=== PATIENT | female | born 1975 ===

== ENCOUNTER 2018-08-11 01:08 | Emergency (ER) | payer SELFPAY ==
[2018-08-11 01:08] VITALS: BMI 39.0
[2018-08-11 01:31] VITALS: TEMP 98.3; O2SAT 98
[2018-08-11] MEDS ORDERED: Sodium Chloride 0.9% 1,000 ML IV STA (02:03)
--- NOTE | 2018-08-11 02:09 | ED PDOC ---
HPI: Headache Time Seen by Provider: 08/11/18 01:33 Chief Complaint (Nursing): Headache Chief Complaint (Provider): headache History Per: Patient History/Exam Limitations: no limitations Onset/Duration Of Symptoms: Days (1 week) Current Symptoms Are (Timing): Still Present Associated Symptoms: Nausea Additional Complaint(s): 43 y/o female presents for evaluation of right-sided headache x 1 week. Patient states pain initially intermittent, now becoming more constant. No relief provided with Advil. Patient evaluated at [facility] for same yesterday and had normal blood work and was given Toradol and Reglan and discharged with prescriptions for ibuprofen and reglan which patient states she did not fill yet because she "couldn't get to the pharmacy". Patient reports nausea when pain intensifies. Denies fever, vomiting, neck/back pain, vision changes, extremity numbness/weakness, chest pain, shortness of breath, palpitations. Past Medical History Reviewed: Historical Data, Nursing Documentation, Vital Signs Vital Signs: Last Vital Signs Temp 98.3 F 08/11/18 01:29 Pulse 74 08/11/18 01:29 Resp 18 08/11/18 01:29 BP 137/82 08/11/18 01:29 Pulse Ox 98 08/11/18 01:29 - Medical History PMH: Back Problems (Chronic) - Surgical History Surgical History: Back Surgery - Family History Family History: States: Unknown Family Hx - Home Medications Home Medications: Ambulatory Orders Medication Instructions Recorded Glyburide [Micronase] 1.25 mg PO DAILY #0 tab 07/20/15 Multivit/Folic Acid/I 1 tab PO DAILY #0 tab 07/20/15 [] - Allergies Allergies/Adverse Reactions: Allergies Allergy/AdvReac Type Severity Reaction Status Date / Time No Known Allergies Allergy Verified 08/11/18 01:31 Review of Systems ROS Statement: Except As Marked, All Systems Reviewed And Found Negative Neurological: Positive for: Headache Physical Exam - Reviewed Nursing Documentation Reviewed: Yes Vital Signs Reviewed: Yes - Physical Exam Appears: Positive for: Well, Non-toxic, No Acute Distress Head Exam: Positive for: ATRAUMATIC, NORMAL INSPECTION, NORMOCEPHALIC Skin: Positive for: Normal Color Eye Exam: Positive for: Normal appearance, EOMI, PERRL ENT: Positive for: Normal ENT Inspection Cardiovascular/Chest: Positive for: Regular Rate, Rhythm Respiratory: Positive for: Normal Breath Sounds Gastrointestinal/Abdominal: Positive for: Normal Exam Back: Positive for: Normal Inspection Extremity: Positive for: Normal ROM Neurological/Psych: Positive for: Awake, Alert, Oriented (x3) - ECG O2 Sat by Pulse Oximetry: 98 - Progress ED Course And Treament: Labs from [facility] ED visit reviewed by sports writerKAYLEE. -CT head -IV reglan -IV NS bolus -PO tylenol -IV toradol CT SCAN OF THE BRAIN WITHOUT IV CONTRAST CLINICAL INDICATION: Right-sided headache. TECHNIQUE: Axial and reformatted sagittal and coronal images of the brain obtained without IV contrast administration. Normal size of the ventricles and extra-axial spaces for the patient's age. Normal white matter tracts of the supratentorial brain. Normal basal ganglia and thalami. Normal brainstem. Normal cerebellum. There is no demonstrated extra-axial, intraparenchymal, or intraventricular hemorrhage. There are no findings of an acute ischemic infarction. Normal calvarium. There is no demonstrated fracture. Normal soft tissue structures. Normal visualized paranasal sinuses. IMPRESSION: Normal unenhanced CT scan of the brain. On re-eval, patient sleeping; upon awakening states headache improved Patient educated on findings, advised to fill previous prescriptions Follow up PMD within 2-3 days Return precautions given Disposition - Clinical Impression Clinical Impression: Headache - Patient ED Disposition Is Patient to be Admitted: No Counseled Patient/Family Regarding: Studies Performed, Diagnosis, Need For Followup - Disposition Referrals: [facility] [Outside] Disposition: Routine/Home Disposition Time: 04:45 Condition: IMPROVED Instructions: Headache, Adult
[2018-08-11 05:56] VITALS: BP 132/72; PULSE 72; RESP 16
--- NOTE | 2018-08-11 10:55 | CT ---
Date of service: 08/11/2018 PROCEDURE: CT HEAD WITHOUT CONTRAST. HISTORY: right-sided headache COMPARISON: 05/29/2013. TECHNIQUE: Axial computed tomography images were obtained through the head/brain without intravenous contrast. Supplemental Coronal and Sagittal projections created and reviewed. Radiation dose: Total exam DLP = 786.23 mGy-cm. This CT exam was performed using one or more of the following dose reduction techniques: Automated exposure control, adjustment of the mA and/or kV according to patient size, and/or use of iterative reconstruction technique. FINDINGS: HEMORRHAGE: No intracranial hemorrhage. BRAIN: No mass effect or edema. No atrophy or chronic microvascular ischemic changes. VENTRICLES: Unremarkable. No hydrocephalus. CALVARIUM: Unremarkable. PARANASAL SINUSES: Chronic ethmoid air cell disease. MASTOID AIR CELLS: Unremarkable as visualized. No inflammatory changes. OTHER FINDINGS: None. IMPRESSION: No acute intracranial abnormalities. No significant findings to account for the clinical presentation. No significant interval change compared to the prior examination(s). Concordant results (preliminary interpretation) provided by [facility]. Procedure Completed: 02:12. Preliminary Report: Interpreted and electronically signed: 03:20. Final Interpretation: 10:51.
== END 2018-08-11 05:00 | disposition home or self-care (01) ==
LOC: H.ER 01:08
DX: R51 Headache (principal)
CPT/HCPCS: 70450; 81025; 96360; 99285; J1885; J2765; J7030